=== PATIENT | female | born 1955 | race Caucasian/White ===

== ENCOUNTER 2017-06-04 05:40 | Day surgery (SDC) | payer OTHER ==
[2017-06-04] MEDS ORDERED: TROP 1%/CYCLOPEN 1%/PHENYL 2% DROPS ONE (11:04)
[2017-06-04] MEDS: GENTAMICIN 0.3% OPHTH SOL 1 DROP OPHTH ONE ×2 (11:19→12:09)
[2017-06-04] MEDS: PROPARACAINE 0.5% OPHTH SOL 15 ML BTTL ONE ×3 (11:19→11:44)
[2017-06-04] MEDS ORDERED: TROP 1%/CYCLOPEN 1%/PHENYL 2% DROPS OPHTH ONE (11:19)
[2017-06-04] MEDS ORDERED: MIDAZOLAM INJ 5 MG/5 ML VIAL ONE (11:40)
[2017-06-04] MEDS ORDERED: DEXAMETHASONE 0.1% OPHTH SOL 1 DROP RIGHT_EYE ONE ×2 (11:55→12:09)
[2017-06-04] MEDS ORDERED: GENTAMICIN 0.3% OPHTH SOL 1 DROP OPHTH ONE (11:56)
[2017-06-04] MEDS ORDERED: BRIMONIDINE 0.2% OPHTH DROPS RIGHT_EYE ONE ×2 (11:57→12:09)
[2017-06-04] MEDS ORDERED: LIDOCAINE 1% PF 2 ML AMP INJ ONE (12:00)
[2017-06-04 16:33] VITALS: O2SAT 100
[2017-06-04 16:44] VITALS: BP 145/81; TEMP 97.2
== END 2017-06-04 12:40 | disposition home or self-care (01) ==
LOC: AMB 05:40
PROVIDERS: ATTEND Ophthalmology
DX: H25.011 Cortical age-related cataract, right eye (principal); H52.209 Unspecified astigmatism, unspecified eye
CPT/HCPCS: 66984; J2250

== ENCOUNTER 2017-06-14 05:48 | Day surgery (SDC) | payer OTHER ==
[2017-06-14] MEDS ORDERED: MIDAZOLAM INJ 5 MG/5 ML VIAL ONE (08:45)
[2017-06-14] MEDS ORDERED: TROP 1%/CYCLOPEN 1%/PHENYL 2% DROPS ONE (11:21)
[2017-06-14] MEDS: TOBRAMYCIN SULF 0.3 % OPHT SOL 1 DROP LEFT_EYE ONE ×2 (12:05→12:49)
[2017-06-14] MEDS: PROPARACAINE 0.5% OPHTH SOL 15 ML BTTL ONE ×3 (12:05→14:16)
[2017-06-14] MEDS ORDERED: LIDOCAINE 1% PF 2 ML AMP INJ ONE (12:31)
[2017-06-14] MEDS ORDERED: DEXAMETHASONE 0.1% OPHTH SOL 1 DROP LEFT_EYE ONE ×2 (12:47→12:51)
[2017-06-14] MEDS ORDERED: BRIMONIDINE 0.2% OPHTH DROPS LEFT_EYE ONE ×2 (12:49→12:51)
[2017-06-14] MEDS ORDERED: TOBRAMYCIN SULF 0.3 % OPHT SOL 1 DROP LEFT_EYE ONE (12:51)
[2017-06-14 13:56] VITALS: BP 142/57; TEMP 96.6; O2SAT 98
== END 2017-06-14 13:40 | disposition home or self-care (01) ==
LOC: AMB 05:48
PROVIDERS: ATTEND Ophthalmology
DX: H25.12 Age-related nuclear cataract, left eye (principal)
CPT/HCPCS: 00142; 66984; J2250

== ENCOUNTER → 2018-08-27 | Outpatient (CLI) | payer OTHER, MEDICARE ==
--- NOTE | 2018-08-27 17:43 | MAM ---
EXAM DESCRIPTION: 3D Diagnostic, Bilateral: Digital Mammography CLINICAL HISTORY: 63 [id number] . No complaints or personal history of breast cancer. Family history of breast cancer. Childbirth. Postmenopausal 25 years. HRT 5 or more years ago.. Lifetime risk of developing breast cancer (Tyrer-Cuzick model) percentage is 5.1. COMPARISON: Baseline study at this facility. No prior reports available.. TECHNIQUE: Bilateral CC LM MLO projection full-field images, digital mammographic tomosynthesis technique. CAD not utilized. FINDINGS: The breast parenchymal density pattern is: Scattered areas of fibroglandular density. No skin thickening or nipple retraction asymmetric density in the anterior middle third of the right breast at the 11:00 12:00 to 1:00 sectors. These findings are within 4 cm of the nipple. No associated microcalcifications. Also focal asymmetry in the upper inner quadrant of the left breast at the 11:00 position approximately 4 cm from the nipple. Ultrasound: Scanning of the right breast at the 11:00 o'clock to 1:00 positions 3 cm from the nipple. Mixed fatty and fibroglandular echotexture. No dominant focal solid mass or cyst. No parenchymal edema or large calcifications. No overlying skin changes. Normal vascularity. Scanning of the left breast at the 11:00 position 3 cm from the nipple. Mixed fatty and fibroglandular echotexture. No dominant focal solid mass or cyst. No parenchymal edema or large calcifications. No overlying skin changes. Normal vascularity. IMPRESSION: Benign exam. BIRAD CATEGORY: 2 BENIGN FINDINGS. RECOMMENDATIONS: FOLLOW UP: Return to routine digital bilateral mammographic screening, one year interval from August 2018. The FINDINGS and the FOLLOW-UP plan were reviewed in person with the patient after the examination. Patient will request previous mammographic examinations from outside imaging institution. Written communication explaining the IMPRESSION and FOLLOW-UP will be mailed to the patient and referring care provider. According to the [employer], yearly mammograms are recommended starting at age 40 and continuing as long as a woman is in good health. Any breast change noted on a breast self-exam should be reported promptly to the patient's healthcare provider. Breast MRI is recommended for women with an approximately 20-25% or greater lifetime risk of breast cancer, including women with a strong family history of breast or ovarian cancer and women who have been treated for Hodgkin's disease. A negative mammographic report should not delay tissue diagnosis in patients with significant clinical history or physical findings. Extremely dense breast tissue limits the sensitivity of digital mammography. Electronically signed by: Truman Ornelas MD 08/27/2018 5:42 PM [facility]
--- NOTE | 2018-08-27 17:46 | US ---
EXAM DESCRIPTION: Breast,Bilateral: Ultrasound CLINICAL HISTORY: 63 [id number] COMPARISON: Digital diagnostic tomosynthesis bilateral breasts on this visit. TECHNIQUE: Transcutaneous scanning of the bilateral breasts utilizing garza-scale and Doppler modes. Scanning performed by the medical insurance coding specialist and Dr. Ornelas. FINDINGS: Scanning of the right breast at the 11:00 o'clock to 1:00 positions 3 cm from the nipple. Mixed fatty and fibroglandular echotexture. No dominant focal solid mass or cyst. No parenchymal edema or large calcifications. No overlying skin changes. Normal vascularity. Scanning of the left breast at the 11:00 position 3 cm from the nipple. Mixed fatty and fibroglandular echotexture. No dominant focal solid mass or cyst. No parenchymal edema or large calcifications. No overlying skin changes. Normal vascularity. IMPRESSION: 1. Bi-Rads Category 2: Benign. 2. Please refer to bilateral digital tomosynthesis diagnostic examination on the same visit. The FINDINGS and the FOLLOW-UP plan were reviewed in person with the patient after the examination. Written communication explaining the IMPRESSION and FOLLOW-UP will be mailed to the patient and referring care provider. Electronically signed by: Truman Ornelas MD 08/27/2018 5:44 PM [facility]
== END ==
LOC: MAMMO 10:19
PROVIDERS: ATTEND Family Medicine
DX: R92.8 Other abnormal and inconclusive findings on diagnostic imaging of breast (principal)
CPT/HCPCS: 76641; 77066; G0279

== ENCOUNTER 2018-10-21 05:19 | Day surgery (SDC) | payer OTHER, MEDICARE ==
[2018-10-21] MEDS ORDERED: TROP 1%/CYCLOPEN 1%/PHENYL 2% DROPS ONE (12:57)
[2018-10-21] MEDS ORDERED: PROPARACAINE 0.5% OPHTH SOL 15 ML BTTL ONE (12:57)
== END 2018-10-21 14:30 | disposition home or self-care (01) ==
LOC: AMB 05:19
PROVIDERS: ATTEND Ophthalmology
DX: H26.492 Other secondary cataract, left eye (principal)

== ENCOUNTER → 2019-03-31 | Outpatient (CLI) | payer OTHER, MEDICARE | LOC: GMAJ 12:18 | PROVIDERS: ATTEND Family Medicine | DX: M89.9 Disorder of bone, unspecified (principal); R03.0 Elevated blood-pressure reading, without diagnosis of hypertension ==

== ENCOUNTER → 2020-04-02 | Outpatient (CLI) | payer MEDICARE, OTHER | LOC: GMAJ 09:55 | PROVIDERS: ATTEND Family Medicine | DX: Z79.899 Other long term (current) drug therapy (principal) ==

== ENCOUNTER → 2020-10-18 | Outpatient (CLI) | payer MEDICARE, OTHER | LOC: YCFC.O 09:40 | PROVIDERS: ATTEND Nurse Practitioner Family | DX: Z20.828 Contact with and (suspected) exposure to other viral communicable diseases (principal) ==